=== PATIENT | male | born 1955 | race Hispanic/Latino ===

== ENCOUNTER 2022-11-15 11:29 | Emergency (ER) | payer MEDICARE ==
[~2022-11-15] VITALS: Ht 177.8 cm; Wt 74.8 kg
== END 2022-11-15 12:08 | disposition home or self-care (01) ==
LOC: EDSEX 11:42 → FSED 11:42
DX: I83.892 Varicose veins of left lower extremity with other complications (principal); I83.023 Varicose veins of left lower extremity with ulcer of ankle; I10 Essential (primary) hypertension; E78.5 Hyperlipidemia, unspecified
CPT/HCPCS: 99282